=== PATIENT | female | born 1960 | race Two or more races ===

== ENCOUNTER → 2019-11-12 | Outpatient (CLI) | payer OTHER | END | disposition home or self-care (01) | LOC: RAD 12:22 | PROVIDERS: ATTEND General Practice | DX: M19.91 Primary osteoarthritis, unspecified site (principal) ==

== ENCOUNTER 2019-11-16 11:12 | Outpatient (CLI) | payer OTHER | END 2019-11-16 14:41 | disposition home or self-care (01) | LOC: NUCLEAR 11:12 | PROVIDERS: ATTEND General Practice | DX: M81.0 Age-related osteoporosis without current pathological fracture (principal) ==

== ENCOUNTER → 2019-11-21 | Outpatient (CLI) | payer OTHER | END | disposition home or self-care (01) | LOC: MRI 10:45 | PROVIDERS: ATTEND Orthopaedic Surgery | DX: M51.26 Other intervertebral disc displacement, lumbar region (principal); M53.3 Sacrococcygeal disorders, not elsewhere classified | CPT/HCPCS: 72148 ==

== ENCOUNTER 2020-01-29 07:11 | Outpatient (CLI) | payer OTHER | END 2020-01-29 08:20 | disposition home or self-care (01) | LOC: NUCLEAR 07:11 | PROVIDERS: ATTEND Internal Medicine Interventional Cardiology | DX: I11.9 Hypertensive heart disease without heart failure (principal) ==

== ENCOUNTER 2020-07-31 17:30 | Emergency (ER) | payer OTHER ==
[~2020-07-31] VITALS: Ht 167.6 cm; Wt 63.5 kg
== END 2020-07-31 20:12 | disposition home or self-care (01) ==
LOC: ER 17:30
DX: S81.011A Laceration without foreign body, right knee, initial encounter (principal); W18.09XA Striking against other object with subsequent fall, initial encounter; Y93.89 Activity, other specified; Y92.480 Sidewalk as the place of occurrence of the external cause; Y99.8 Other external cause status

== ENCOUNTER → 2021-01-01 | Outpatient (CLI) | payer OTHER | END | disposition home or self-care (01) | LOC: MRI 06:24 | PROVIDERS: ATTEND Orthopaedic Surgery | DX: M54.5 Low back pain (principal) | CPT/HCPCS: 72148 ==

== ENCOUNTER 2021-04-20 02:43 | Emergency (ER) | payer OTHER ==
[~2021-04-20] VITALS: Ht 167.6 cm; Wt 56.7 kg
[2021-04-20] MEDS ORDERED: FORTEO2.4 ML (03:04)
== END 2021-04-20 07:01 ==
LOC: ER 02:43
DX: R00.2 Palpitations (principal)

== ENCOUNTER 2021-04-30 14:02 | Outpatient (CLI) | payer OTHER ==
[~2021-04-30 14:02] MED LIST: FORTEO2.4 ML
== END 2021-04-30 14:19 | disposition home or self-care (01) ==
LOC: MAMO-SONO 14:02
PROVIDERS: ATTEND Family Medicine
DX: N60.11 Diffuse cystic mastopathy of right breast (principal); N60.12 Diffuse cystic mastopathy of left breast; N64.89 Other specified disorders of breast

== ENCOUNTER 2021-05-08 09:48 | Outpatient (CLI) | payer OTHER | END 2021-05-08 10:05 | disposition home or self-care (01) | LOC: SONOGRAMA 09:48 | PROVIDERS: ATTEND Internal Medicine Gastroenterology | DX: R10.13 Epigastric pain (principal) ==

== ENCOUNTER 2021-11-26 13:36 | Outpatient (CLI) | payer OTHER | END 2021-11-26 13:37 | disposition home or self-care (01) | LOC: NUCLEAR 13:36 | PROVIDERS: ATTEND Internal Medicine Rheumatology | DX: M81.0 Age-related osteoporosis without current pathological fracture (principal) ==

== ENCOUNTER 2021-11-26 13:54 | Outpatient (CLI) | payer OTHER | END 2021-11-26 14:05 | disposition home or self-care (01) | LOC: RAD 13:54 | PROVIDERS: ATTEND Internal Medicine Rheumatology | DX: M15.8 Other polyosteoarthritis (principal) ==

== ENCOUNTER 2021-12-31 06:58 | Outpatient (CLI) | payer OTHER | END 2021-12-31 07:10 | disposition home or self-care (01) | LOC: SONOGRAMA 06:58 | PROVIDERS: ATTEND Internal Medicine Gastroenterology | DX: R16.2 Hepatomegaly with splenomegaly, not elsewhere classified (principal) ==

== ENCOUNTER 2023-02-14 07:56 | Outpatient (CLI) | payer OTHER | END 2023-02-14 08:10 | disposition home or self-care (01) | LOC: SONOGRAMA 07:56 | PROVIDERS: ATTEND Internal Medicine Rheumatology | DX: M77.11 Lateral epicondylitis, right elbow (principal) ==

== ENCOUNTER 2023-11-28 13:53 | Outpatient (CLI) | payer OTHER | END 2023-11-28 13:54 | disposition home or self-care (01) | LOC: NUCLEAR 13:53 | PROVIDERS: ATTEND Internal Medicine Rheumatology | DX: M81.0 Age-related osteoporosis without current pathological fracture (principal) ==

== ENCOUNTER 2024-02-22 08:11 | Outpatient (CLI) | payer OTHER | END 2024-02-22 08:17 | disposition home or self-care (01) | LOC: SONOGRAMA 08:11 | PROVIDERS: ATTEND Internal Medicine Gastroenterology | DX: R16.0 Hepatomegaly, not elsewhere classified (principal) ==

== ENCOUNTER 2024-04-19 07:15 | Outpatient (CLI) | payer OTHER | END 2024-04-19 07:50 | disposition home or self-care (01) | LOC: MRI 07:15 | PROVIDERS: ATTEND Orthopaedic Surgery | DX: M51.26 Other intervertebral disc displacement, lumbar region (principal) | CPT/HCPCS: 72148 ==

== ENCOUNTER 2025-03-29 08:14 | Outpatient (CLI) | payer OTHER | END 2025-03-29 08:17 | disposition home or self-care (01) | LOC: MAMO-SONO 08:14 | PROVIDERS: ATTEND Family Medicine | DX: N60.19 Diffuse cystic mastopathy of unspecified breast (principal); G43.711 Chronic migraine without aura, intractable, with status migrainosus; R16.1 Splenomegaly, not elsewhere classified | CPT/HCPCS: 70551 ==